=== PATIENT | male | born 1990 | race Two or more races ===

== ENCOUNTER 2021-08-27 15:55 | Emergency (ER) | payer SELFPAY ==
[~2021-08-27] VITALS: Ht 170.2 cm; Wt 97.5 kg
[2021-08-27] MEDS ORDERED: ONDANSETRON 4 MG/2 ML VIAL IV ONE (16:15)
[2021-08-27] MEDS ORDERED: FAMOTIDINE. 20 MG/2 ML VIAL IV ONE ×2 (16:15→16:43)
[2021-08-27] MEDS ORDERED: MAG HYDROX/AL HYDROX/SIMETH 30 ML LIQUID UDC PO ONE (16:15)
[2021-08-27] MEDS ORDERED: IV NORMAL SALINE 1000 ML BAG IV ONE (16:15)
[2021-08-27] MEDS ORDERED: LIDOCAINE VISCUS 2% 15 ML UDC MM ONE (16:15)
[2021-08-27] MEDS ORDERED: ACETAMINOPHEN ES 500 MG TABLET PO ONE (16:15)
[2021-08-27] MEDS ORDERED: HYDROMORPHONE 1 MG/1 ML DISP.SYRIN IV ONE ×2 (16:15→17:45)
[2021-08-27 16:40] LABS: HEMATOCRIT 42.1 % (36.7-47.1); MEAN CORPUSCULAR HEMOGLOBIN 32.8 uug (23.8-33.4); MEAN CORPUSCULAR VOLUME 91.5 fL (73.0-96.2); PLATELET COUNT (AUTO) 318 K/uL (152-348)
[2021-08-27] MEDS ORDERED: HYDROMORPHONE 1 MG/1 ML DISP.SYRIN ONE ×2 (16:43→17:58)
[2021-08-27] MEDS ORDERED: ONDANSETRON 4 MG/2 ML VIAL ONE (16:43)
[2021-08-27] MEDS ORDERED: ACETAMINOPHEN ES 500 MG TABLET ONE (16:45)
[2021-08-27] MEDS ORDERED: MAG HYDROX/AL HYDROX/SIMETH 30 ML LIQUID UDC ONE (16:45)
[2021-08-27] MEDS ORDERED: LIDOCAINE VISCUS 2% 15 ML UDC ONE (16:45)
[2021-08-27 16:47] LABS: ETHANOL < 3 MG/DL (0-0)
[2021-08-27 16:50] LABS: BILIRUBIN,DIRECT 0.1 mg/dL (0.0-0.2); BILIRUBIN,TOTAL 0.2 mg/dL (0.2-1.0); TOTAL PROTEIN, SERUM 7.6 g/dL (6.4-8.2)
[2021-08-27 16:51] LABS: MAGNESIUM 2.1 mg/dL (1.8-2.4); PHOSPHOROUS 3.8 mg/dL (2.5-4.9)
[2021-08-27] MEDS ORDERED: KETOROLAC TROMETHAMINE 30 MG INJ IVP ONE (17:15)
[2021-08-27] MEDS ORDERED: KETOROLAC TROMETHAMINE 30 MG INJ ONE (17:24)
[2021-08-27] MEDS ORDERED: HYDR-4209 PO (17:44)
[2021-08-27] MEDS ORDERED: IBUP-1957 PO (17:44)
[2021-08-27] MEDS ORDERED: OMEP40CA21 PO (17:44)
--- NOTE | 2021-08-27 18:11 | NUR ---
PT WAS EVALUATED BY DR JERNIGAN. PT WAS D/C'd TO HOME. D/C INSTRUCTIONS GIVEN TO THE PT BY DR JERNIGAN.
[2021-08-27 18:12] VITALS: BP 128/69
== END 2021-08-27 18:13 | disposition home or self-care (01) ==
LOC: ER 16:00
DX: K80.70 Calculus of gallbladder and bile duct without cholecystitis without obstruction (principal); R11.10 Vomiting, unspecified; I49.3 Ventricular premature depolarization; D72.829 Elevated white blood cell count, unspecified; R10.13 Epigastric pain; F17.290 Nicotine dependence, other tobacco product, uncomplicated
CPT/HCPCS: 36415; 71045; 76700; 80048; 80076; 80320; 83690; 83735; 84100; 84484; 85025; 93005; 96361; 96374; 96375; 96376; 99285; 99406; J1170 ×2; J1885; J2405; J3490; 70030-TC; A4663; A9150; G0480; J7030